=== PATIENT | male | born 1980 | race Caucasian/White ===

== ENCOUNTER 2016-07-19 13:27 | Inpatient (IN) ==
--- NOTE | 2016-07-19 14:44 | Emergency Department Note ---
START Narrative - START START: I examined this patient and my medical decision-making was reviewed with the TELEPHONE STATION INSTALLER/PA/Advanced Practice Nurse/Resident Physician. I agree with the documented findings, disposition and treatment plan as described except to the extent set forth below. The patient's does have some jaundice in the eyes which he said is new and does have elevated liver enzymes and this will be further discussed with GI to discuss further evaluation either has a inpatient or as a outpatient patient is relatively asymptomatic. Very minimal right upper quadrant pain. [id number]
--- NOTE | 2016-07-19 14:47 | Emergency Department Note ---
Disposition Clinical Impression: Jaundice, Elevated liver enzymes Hepatitis C Qualifiers: Viral hepatitis chronicity: chronic Hepatic coma status: without hepatic coma Qualified Code(s): B18.2 - Chronic viral hepatitis C Disposition: Admitted As Inpatient Condition: Fair Referrals: Farhana Garcia EMPLOYMENT LEGAL ASSISTANT [Primary Care Provider] - Time of Disposition: 18:04 General Adult HPI - General Chief complaint: ED Recheck/Abnormal Lab/Rx Stated complaint: Abnormal Labs Time Seen by Provider: 07/19/16 13:37 Source: patient, EMS Mode of arrival: ambulatory Limitations: no limitations Nursing Notes Reviewed: Yes Vital Signs Reviewed: Yes - History of Present Illness HPI Narrative: Mr. Klein is a 36 year old male that presents for abnormal lab values. Preliminary lab work before starting Vivitrol showed increased AST at 3590, ALT 3541, and bilirubin 4.9. He noted 2 days of constant reflux/GERD without treatment and some RUQ achy discomfort. He also notes "yellowing" of his eyes today. He admits to history of hepatitis B and C, lab work sent with patient suggest hepatitis C positive. He notes a similar episode approx 5 years ago when his liver enzyme was "2500" and he required a 2 day hospital stay. He notes decreased urine output, but denies nausea, vomiting, fever, diarrhea, or constipation. History of heavy alcohol use for approx 20 years before quitting 5 years ago. Also notes extensive history of IVDU, most recently heroin. Pt Subjective Complaint: elevated ALT/AST Pain Scale: 0 - Related Data Home Medications Medication Instructions Recorded Confirmed No Known Home Drugs 07/19/16 07/19/16 Allergies Allergy/AdvReac Type Severity Reaction Status Date / Time No Known Allergies Allergy Verified 07/19/16 13:28 All systems ED: reviewed and negative except as stated. Constitutional: Denies: fever, chills Cardiovascular: Denies: chest pain Respiratory: Denies: dyspnea Gastrointestinal: Denies: abdominal pain, nausea, vomiting, diarrhea, constipation, hematemesis, melena, hematochezia Genitourinary: Denies: dysuria, frequency Musculoskeletal: Denies: back pain Past Medical History - Past Medical History Attestation: Yes The following information was validated with the patient. Source: patient Medical history: Reports: hepatitis Psychiatric history: Reports: no psych history - Social History Smoking Status: Current every day smoker Packs per day: 1 Smokeless Tobacco Status: No Alcohol use: Reports: none Drug use: Reports: IVDU Physical Exam - General Limitations: no limitations General appearance: alert, in no apparent distress - Head Head exam: atraumatic, normocephalic - Eye Eye exam: Present: normal appearance, PERRL, EOMI, scleral icterus - ENT ENT exam: normal exam, normal oropharynx - Neck Neck exam: Present: normal inspection, full ROM, trachea midline - Chest Chest inspection: Present: normal inspection, symmetric chest wall rise - Respiratory Respiratory exam: Present: normal lung sounds bilaterally. Absent: respiratory distress, wheezes - Cardiovascular Cardiovascular exam: Present: regular rate, normal rhythm, +S1, +S2 - Abdominal Exam Abdominal exam: Present: soft, tenderness, normal bowel sounds, other (unable to palpate liver edge.). Absent: distention, guarding, rebound, rigidity, Burdick's sign, ascites, pulsatile mass Abdominal tenderness: Present: RUQ - Extremities Exam Extremities exam: Present: normal inspection, full ROM. Absent: pedal edema - Neurological Exam Neurological exam: Present: alert, oriented X3 - Psychiatric Psychiatric exam: Present: normal affect, normal mood - Skin Skin exam: Present: warm, dry, intact, other (jaundice noted on chest) Course - Reevaluation(s) Reevaluation #1: Patient re-evaluated, ambulating in the halls, no acute distress. Eating pizza without complaint. Time: 18:30 - Consultations Consultation #1: Spoke to Dr. Norton with GI that recommended admission to hospitalist. Spoke to Dr Salvador, admitting physician, that request RUQ US and repeat labs prior to admission. Time: 17:53 Consultation #2: Spoke to ANEESH Lamas with hospitalist with updated lab and US results. Will proceed with admission. Time: 18:01 Vital Signs Temperature 97.4 F L 07/19/16 13:29 Pulse Rate 78 07/19/16 13:29 Respiratory Rate 16 07/19/16 13:29 Blood Pressure 127/90 07/19/16 13:29 O2 Sat by Pulse Oximetry 100 07/19/16 13:29 Temperature 97.8 F 07/19/16 19:12 Pulse Rate 81 07/19/16 19:12 Respiratory Rate 16 07/19/16 19:12 Blood Pressure 127/82 07/19/16 19:12 O2 Sat by Pulse Oximetry 99 07/19/16 19:12 Oxygen Delivery Oxygen Delivery Room Air Medical Decision Making - MDM Narrative Medical decision making narrative: I reviewed lab work that was completed yesterday showing elevated AST, ALT, and bilirubin; in addition positive hepatitis C. With patient's new onset jaundice and elevated liver enzymes, concern for acute hepatitis and need for GI consult. Patient does not appear to have an acute abdomen based on physical exam. US of RUQ showed no acute findings. Patient tolerating PO intake well without complaint. Repeat lab work showing increased liver enzymes, though not as significant as yesterday's report; also noted to have increased lipase. - Lab Data Lab results reviewed: Yes I reviewed the patient's lab results. Result diagrams: 07/19/16 16:30 07/19/16 16:30 Lab Results 07/19/16 07/19/16 07/19/16 Range/Units 16:30 16:30 16:30 WBC 8.1 (4.3-11.1) K/mcL RBC 5.12 (4.19-5.50) M/mcL Hgb 14.5 (12.9-16.9) g/dL Hct 43.6 (37.5-50.1) % MCV 85.2 (83.0-100.0) fL MCH 28.3 (28.0-33.3) pg MCHC 33.3 (31.6-35.5) g/dL RDW 14.0 (11.5-14.5) % Plt Count 267 (140-400) K/mcL MPV 9.7 (9.4-12.4) fL Immature Gran % 0.1 (0-4) % Seg Neutrophils % 41.3 % Lymphocytes % 49.6 % Monocytes % 7.1 % Eosinophils % 1.5 % Basophils % 0.4 % Neutrophils # 3.4 (1.6-8.9) K/mcL Lymphocytes # 4.0 (0.6-4.6) K/mcL Monocytes # 0.6 (0.0-1.3) K/mcL Eosinophils # 0.1 (0.0-0.6) K/mcL Basophils # 0.0 (0.0-0.2) K/mcL Reactive Lymphocytes Present A (Not Present) PT 14.6 H (9.4-12.1) Seconds INR 1.3 Sodium 137 (136-145) mEq/L Potassium 3.4 L (3.5-4.5) mEq/L Chloride 100 (98-109) mEq/L Carbon Dioxide 23 (19-29) mEq/L BUN 11 (8-26) mg/dL Creatinine 0.86 (0.72-1.25) mg/dL Est GFR ( Amer) > 60 (> 60) Est GFR (Non-Af Amer) > 60 (> 60) BUN/Creatinine Ratio 13 (6-26) Glucose 105 H (70-99) mg/dL Calculated Osmolality 284 (280-300) Calcium 9.5 (8.6-10.8) mg/dL Total Bilirubin 4.7 H (0.2-1.2) mg/dL Direct Bilirubin 3.5 H (0.0-0.5) mg/dL Indirect Bilirubin 1.2 (0.0-1.2) mg/dL AST 1675 H (5-34) Units/L ALT 2874 H (0-55) Units/L Alkaline Phosphatase 168 H (38-126) Units/L Serum Total Protein 7.8 (6.0-8.3) g/dL Albumin 4.0 (3.5-5.0) g/dL Globulin 3.8 H (2.4-3.5) g/dL Albumin/Globulin Ratio 1.1 (1.1-2.2) Lipase 103 H (8-78) Units/L - Radiology Data Radiology results reviewed: Yes I reviewed the patient's radiology results. Abdomen Ultrasound 07/19/16 15:43 IMPRESSION: 1. Contracted gallbladder with no definite acute finding. 2. Obscured pancreas secondary to overlying bowel gas. D/ / Jamir Maza MD / Jamir Maza MD Interpreting Provider: Jamir Maza MD
[2016-07-19 16:48] LABS: INR 1.3; Prothrombin Time 14.6 Seconds (9.4-12.1)
[2016-07-19 16:58] LABS: Alanine Aminotransferase 2874 Units/L (0-55); Albumin/Globulin Ratio 1.1 (1.1-2.2); Alkaline Phosphatase 168 Units/L (38-126); Aspartate Amino Transferase 1675 Units/L (5-34); BUN/Creatinine Ratio 13 (6-26); Bilirubin,Direct 3.5 mg/dL (0.0-0.5); Bilirubin,Indirect 1.2 mg/dL (0.0-1.2); Bilirubin,Total 4.7 mg/dL (0.2-1.2); Blood Urea Nitrogen 11 mg/dL (8-26); Calcium 9.5 mg/dL (8.6-10.8); Carbon Dioxide 23 mEq/L (19-29); Chloride 100 mEq/L (98-109); Globulin 3.8 g/dL (2.4-3.5); Glucose 105 mg/dL (70-99); Lipase 103 Units/L (8-78); Osmolality,Calculated 284 (280-300); Potassium 3.4 mEq/L (3.5-4.5); Sodium 137 mEq/L (136-145); Total Protein 7.8 g/dL (6.0-8.3); eGFR For African Americans > 60 (> 60); eGFR For Non-African Americans > 60 (> 60)
[2016-07-19 17:06] LABS: Basophils % 0.4 %; Eosinophils # 0.1 K/mcL (0.0-0.6); Eosinophils % 1.5 %; Hematocrit 43.6 % (37.5-50.1); Hemoglobin 14.5 g/dL (12.9-16.9); Immature Granulocytes % 0.1 % (0-4); Lymphocytes % 49.6 %; Mean Corpuscular HGB Conc 33.3 g/dL (31.6-35.5); Mean Corpuscular Hemoglobin 28.3 pg (28.0-33.3); Mean Corpuscular Volume 85.2 fL (83.0-100.0); Mean Platelet Volume 9.7 fL (9.4-12.4); Monocytes # 0.6 K/mcL (0.0-1.3); Monocytes % 7.1 %; Neutrophils # 3.4 K/mcL (1.6-8.9); Platelet Count 267 K/mcL (140-400); Red Blood Count 5.12 M/mcL (4.19-5.50); Segmented Neutrophils % 41.3 %
[2016-07-19 17:44] LABS: Reactive Lymphocytes Present (Not Present)
--- NOTE | 2016-07-19 19:50 | Internal Med History&Physical ---
Date of Encounter: 07/19/16 Time of Encounter: 19:42 Assessment and Plan (1) Pancreatitis Current visit: Yes Status: Acute mild and minimal symptoms Qualifiers: Chronicity: acute Pancreatitis type: drug induced Acute pancreatitis complication: unspecified Qualified Code(s): K85.30 - Drug induced acute pancreatitis without necrosis or infection (2) Hepatitis C Current visit: Yes Status: Acute says treated for hepatitis B 3 years ago and then diagnosed with hepatitis c last year most likely etiology for roberto inr is normal Qualifiers: Viral hepatitis chronicity: chronic Hepatic coma status: without hepatic coma Qualified Code(s): B18.2 - Chronic viral hepatitis C (3) Jaundice Current visit: Yes Status: Acute acute hepatitis with jaundice ultrasound unremarkable DR Norton in consultation (4) Elevated liver enzymes Current visit: Yes Status: Acute (5) Drug abuse and dependence Current visit: Yes Status: Acute fpc drug dependence and about to be started on Vivitrol (6) Hypokalemia Current visit: Yes Status: Acute will supplement and recheck in am check mag as well Internal Medicine - H&P: HPI Chief complaint: jaundice Admitted From: Emergency Dept Plans for Post Hospital Care: Home History of present illness: Mr. Klein is a 36 year old male Patient with history of hepatitis B treated about 3 years ago. last year diagnosed with hepatitis C also, but being treated yet He has history of multiple drug abuse including IV drugs . meth , heroin and cocaine and heavy alcohol use in past patient is a skilled nursing was noted to be jaundiced, has some mild symptoms of abdominal pain and fatique and feeling tired He was to be started on Vivitrol and some labs drawn prior to starting drug substitute labs showed elevated liver enzymes . then he was transferred here for treatment . labs here shows , AST was 1675, AST 2874 bilirubin 4.[address] Norton Gi has been consulted . ultrasound of the abdomen was negative no gallstone CBD not dilated . Patient says his last drug use has been about a month no recent alcohol use. denies nausea or vomiting his lipase was also elevated to 103 but is able to tolerate food with no symptoms Past Med Surg Social Fam HX - Past Medical History Medical history: hepatitis, liver disease Psychiatric history: no psych history - Social History Smoking Status: Current every day smoker Packs per day: 1 Smokeless Tobacco Status: No Alcohol use: none Drug use: IVDU Internal Medicine - H&P: Meds No Known Home Drugs 07/19/16 [History] Allergies No Known Allergies Allergy (Verified 07/19/16 13:28) All Systems PM: A 10-system review of systems was performed and is negative for pertinent findings except as documented above in the HPI. - Constitutional Constitutional: fatigue, lethargy, malaise - EENT Additional comments: jaundice Nose, mouth and throat: other - Cardiovascular Cardiovascular ROS IM: no chest pain, no diaphoresis, no dyspnea, no lightheadedness, no palpitations, no syncope - Respiratory Respiratory: no cough, no dyspnea, no wheezing, no excessive phlegm production - Gastrointestinal Gastrointestinal: abdominal pain, heartburn - Musculoskeletal Musculoskeletal ROS IM: no numbness, no tingling - Integumentary Integumentary IM: jaundice - Neurological Neurological ROS: no confusion, no convulsions, no focal weakness, no numbness, no tingling, no tremor(s) - Hematologic/Lymphatic Hematologic/Lymphatic: no easy bruising - Constitutional Vitals: Temp Pulse Resp BP Pulse Ox 97.8 F 81 16 127/82 99 07/19/16 19:12 07/19/16 19:12 07/19/16 19:12 07/19/16 19:12 07/19/16 19:12 General appearance: Present: A&O X 3 - Eye Eye exam: Present: scleral icterus - Neck Neck exam general surgery: Present: supple, trachea midline. Absent: lymphadenopathy - Respiratory Respiratory exam: Present: CTAB. Absent: accessory muscle use, rales, rhonchi, wheezes - Cardiovascular Cardiovascular exam: Present: RRR, +S1, +S2. Absent: diastolic murmur, gallop, rubs, systolic murmur - GI/Abdominal GI/Abdominal exam: Present: normal bowel sounds, soft, tenderness, no peritoneal signs. Absent: distended - Extremities Exam Extremities exam: Present: warm, radial pulses palpable and symetrical. Absent : calf tenderness, cyanotic, pedal edema Internal Med - H&P Results - Labs CBC & Chem 7: 07/19/16 16:30 07/19/16 16:30
[2016-07-19] MEDS ORDERED: Naloxone 0.4 MG/ML INJ IVP PRN ×2 (19:58→19:59)
[2016-07-19] MEDS ORDERED: Ondansetron 4 MG/2 ML VIAL IVP PRN (19:59)
[2016-07-19] MEDS ORDERED: 0.9 % Sodium Chloride 1,000 ML IVC SCH (20:00)
[2016-07-19] MEDS: *HR* Morphine 2 MG/ML SYRINGE IVP PRN (21:43)
[2016-07-20] MEDS: *HR* Morphine 2 MG/ML SYRINGE IVP PRN ×4 (01:46→14:14)
[2016-07-20 04:48] LABS: INR 1.3; Prothrombin Time 13.7 Seconds (9.4-12.1)
[2016-07-20 05:00] LABS: Alanine Aminotransferase 1968 Units/L (0-55); Albumin 3.2 g/dL (3.5-5.0); Alkaline Phosphatase 138 Units/L (38-126); Aspartate Amino Transferase 821 Units/L (5-34); BUN/Creatinine Ratio 16 (6-26); Bilirubin,Total 3.1 mg/dL (0.2-1.2); Blood Urea Nitrogen 12 mg/dL (8-26); Calcium 8.7 mg/dL (8.6-10.8); Carbon Dioxide 21 mEq/L (19-29); Chloride 106 mEq/L (98-109); Chol/HDL Ratio 20.2 (0-4.9); Cholesterol 101 mg/dL (< 200); Globulin 3.2 g/dL (2.4-3.5); Glucose 122 mg/dL (70-99); HDL Cholesterol 5 mg/dL (40-59); LDL Cholesterol,Calculated 58 mg/dL (0-99); Magnesium 1.9 mg/dL (1.6-2.6); Osmolality,Calculated 289 (280-300); Potassium 3.8 mEq/L (3.5-4.5); Sodium 139 mEq/L (136-145); Total Protein 6.4 g/dL (6.0-8.3); Triglycerides 192 mg/dL (< 150); eGFR For African Americans > 60 (> 60); eGFR For Non-African Americans > 60 (> 60)
[2016-07-20 05:27] LABS: Hepatitis A Antibody IgM Nonreactive (Nonreactive); Hepatitis B Core IgM Nonreactive (Nonreactive); Hepatitis B Surface Antigen Nonreactive (Nonreactive)
[2016-07-20 06:41] LABS: Hepatitis C Virus Antibody Reactive (Nonreactive)
--- NOTE | 2016-07-20 12:08 | Gastroenterology Consult Note ---
<Luke Brennan Stacie - Last Filed: 07/20/16 12:05> Date of Encounter: 07/20/16 Time of Encounter: 10:40 - Assessment and plan (1) Hepatitis C Current Visit: Yes Status: Acute Assessment and plan: Hep C screen positive. Complete Hep C quant and genotype. Likely an acute Hep C. Continue ot monitor hepatic panel daily. Pt states he has been drug free for 2+ years. Check tox screen. RUQ US with no obstruction. Qualifiers: Viral hepatitis chronicity: chronic Hepatic coma status: without hepatic coma Qualified Code(s): B18.2 - Chronic viral hepatitis C (2) Elevated liver enzymes Current Visit: Yes Status: Acute Assessment and plan: on admission TB 4.3, AST 1675, ALT 2874. This AM TB 3.1, AST 821, ALTT 1968. Hep C screening positive. Likely acute hepatitis. Follow up in GI office in 2 weeks. Check hepatic panel prior to office visit. (3) Jaundice Current Visit: Yes Status: Acute (4) Pancreatitis Current Visit: Yes Status: Acute Assessment and plan: Lipase 103, mildly elevated. Continue IV fluids, anti emetics, and pain control. Qualifiers: Chronicity: acute Pancreatitis type: drug induced Acute pancreatitis complication: unspecified Qualified Code(s): K85.30 - Drug induced acute pancreatitis without necrosis or infection - Time Spent With Patient Total time spent is greater than 50% in coordination of care (as documented) at patient's floor/unit and/or counseling patient: GI History of Present Illness - Data of Consult Patient: new to practice Consult date: 07/20/16 Requesting Physician: Dae Chávez MD - Consult Narrative Reason for consult: Hepatitis, Jaundice History of present illness: Mr. Klein is a 36 year old male with PMHx of hepatitis B treated 3 years ago, he was diagnosed with Hep C last year but has not been treated. He has a history of drug abuse including IV drugs, meth, heroin, cocaine, and heavy alcohol abuse (quit 5 years ago after 20 years of ETOH abuse). He presented with jaundice, mild abdominal pain, fatigue. He denies nausea, vomiting, fever, diarrhea, or constipation. He was to be started on Vivitrol, and preliminary lab work showed increased AST at 3590, ALT 3541, and bilirubin 4.9. RUQ US with contracted gallbladder with no definite acute finding, obscured pancreas secondary to overlying bowel gas. Pt denies use of Tylenol. Procedures: None NSAIDs: Aleve Anticoagulation: None Past Med Surg Social Fam HX - Past Medical History Medical history: hepatitis, liver disease Psychiatric history: no psych history - Social History Smoking Status: Current every day smoker Packs per day: 1 Smokeless Tobacco Status: No Alcohol use: none Drug use: IVDU - Family History Father Hx Family Endocrine Disorder: Yes - Gastrointestinal Gastrointestinal: Present: as per HPI - Constitutional Constitutional: as per HPI - EENT Eyes: as per HPI Ears: Present: as per HPI Nose, mouth and throat: Present: as per HPI - Cardiovascular Cardiovascular ROS: Present: as per HPI - Respiratory Respiratory IM: Present: as per HPI - Genitourinary Genitourinary: Absent: change in color, Urinary frequency - Neurological ROS Neurological GI: Present: as per HPI - Hematologic/Lymphatic Hematologic/Lymphatic pediatric: Present: as per HPI - Musculoskeletal Musculoskeletal ROS GI: Present: as per HPI - Integumentary Integumentary GI: Present: as per HPI - Psychiatric ROS Psychiatric GI: Present: as per HPI - Endocrine Endocrine IM: Present: as per HPI - Constitutional Vitals: Temp Pulse Resp BP Pulse Ox 98.2 F 74 16 120/76 100 07/20/16 10:39 07/20/16 10:39 07/20/16 10:39 07/20/16 10:39 07/20/16 10:39 General appearance: Present: cooperative, A&O X 3, no acute distress, answers questions appropriately - Head Head exam: Present: atraumatic, normocephalic - Eye Eye exam: Present: normal appearance, sclera anicteric - ENT ENT exam: Present: mucous membranes moist - Neck Neck exam general surgery: Present: normal inspection, trachea midline - Respiratory Respiratory exam: Present: CTAB. Absent: rales, rhonchi - Cardiovascular Cardiovascular exam: Present: RRR, +S1, +S2 - GI/Abdominal GI/Abdominal exam: Present: soft, no peritoneal signs. Absent: distended, firm , guarding - Rectal Rectal exam: Present: deferred - Extremities Exam Extremities exam: Present: warm - Neurological Exam Neurological exam: Present: no focal deficits - Psychiatric Psychiatric exam: Present: normal affect, normal mood - Skin Skin exam: Present: dry, intact, normal color, warm Results - Labs CBC & Chem 7: 07/19/16 16:30 07/20/16 04:08 Labs: Last Result Calcium 8.7 mg/dL (8.6-10.8) 07/20/16 04:08 Triglycerides 192 mg/dL (< 150) H 07/20/16 04:08 Entire Visit Hgb 14.5 g/dL (12.9-16.9) 07/19/16 16:30 Hct 43.6 % (37.5-50.1) 07/19/16 16:30 PT 13.7 Seconds (9.4-12.1) H 07/20/16 04:08 Total Bilirubin 3.1 mg/dL (0.2-1.2) H 07/20/16 04:08 AST 821 Units/L (5-34) H 07/20/16 04:08 ALT 1968 Units/L (0-55) H 07/20/16 04:08 Lipase 103 Units/L (8-78) H 07/19/16 16:30 - ABG ABG results: PT/INR, D-dimer PT 13.7 Seconds (9.4-12.1) H 07/20/16 04:08 Consult Discharge Plan - Plan Referrals: Farhana Garcia, CROCHETER HAND [Primary Care Provider] - <Johanny Norton - Last Filed: 07/20/16 14:43> Date of Encounter: 07/20/16 - Time Spent With Patient Total time spent is greater than 50% in coordination of care (as documented) at patient's floor/unit and/or counseling patient: GI History of Present Illness - Data of Consult Requesting Physician: Dae Chávez MD - Consult Narrative History of present illness: Mr. Klein is a 36 year old male - Constitutional Vitals: Temp Pulse Resp BP Pulse Ox 98.2 F 74 16 120/76 100 07/20/16 10:39 07/20/16 10:39 07/20/16 10:39 07/20/16 10:39 07/20/16 10:39 Results - Labs CBC & Chem 7: 07/19/16 16:30 07/20/16 04:08 Labs: Last Result Calcium 8.7 mg/dL (8.6-10.8) 07/20/16 04:08 Ferritin 398 ng/ml (22-275) H 07/20/16 12:43 Triglycerides 192 mg/dL (< 150) H 07/20/16 04:08 Urine Opiates Screen Positive ng/mL (Tymgqd=580) H 07/20/16 13:44 Entire Visit Hgb 14.5 g/dL (12.9-16.9) 07/19/16 16:30 Hct 43.6 % (37.5-50.1) 07/19/16 16:30 PT 13.7 Seconds (9.4-12.1) H 07/20/16 04:08 Ferritin 398 ng/ml (22-275) H 07/20/16 12:43 Total Bilirubin 3.1 mg/dL (0.2-1.2) H 07/20/16 04:08 AST 821 Units/L (5-34) H 07/20/16 04:08 ALT 1968 Units/L (0-55) H 07/20/16 04:08 Lipase 103 Units/L (8-78) H 07/19/16 16:30 - ABG ABG results: PT/INR, D-dimer PT 13.7 Seconds (9.4-12.1) H 07/20/16 04:08 - Attending Attestation I examined this patient and my medical decision-making was reviewed with the GINSENG FARMER/PA/Advanced Practice Nurse/Resident Physician. I agree with the documented findings, disposition and treatment plan as described except to the extent set forth below.
[2016-07-20 13:58] LABS: Amphetamine Screen,Urine Negative ng/mL (Cutoff=1000); Barbiturate Screen,Urine Negative ng/mL (Cutoff=200); Benzodiazepines Screen,Urine Negative ng/mL (Cutoff=200); Cannabinoid Screen,Urine Negative ng/mL (Cutoff = 50); Cocaine Screen,Urine Negative ng/mL (Cutoff= 300); Opiate Screen,Urine Positive ng/mL (Cutoff=300); Phencyclidine Screen,Urine Negative ng/mL (Cutoff=25)
[2016-07-20] MEDS ORDERED: *HR* OxyCODONE Immed Rel 5 MG TABLET PO PRN (14:37)
[2016-07-20] MEDS ORDERED: Mag Hydrox/Al Hydrox/Simeth 30 ML UDC PO PRN (14:41)
[2016-07-20] MEDS: *HR* OxyCODONE Immed Rel 5 MG TABLET PO PRN (16:04)
[2016-07-20] MEDS ORDERED: Temazepam 15 MG CAPSULE PO PRN (16:07)
--- NOTE | 2016-07-20 17:14 | Internal Med Progress Note ---
Date of Encounter: 07/20/16 Time of Encounter: 14:00 - Assessment and plan (1) Anxiety Current Visit: Yes Status: Acute Assessment and plan: Start low-dose Ativan 0.5 mg oral 3 times a day when necessary. (2) Insomnia Current Visit: Yes Status: Acute Assessment and plan: We will treat with Restoril when necessary. Qualifiers: Insomnia type: unspecified Qualified Code(s): G47.00 - Insomnia, unspecified (3) Hepatitis C Current Visit: Yes Status: Acute Assessment and plan: Acute hepatitis C causing LFT elevation and abdominal pain associated with generalized weakness. Acute hepatitis C: We will consult gastroenterology. Obtain viral titers. Supportive care. For pain he has been receiving IV morphine, will start oral oxycodone and discontinue the IV since he has a reliable oral intake. We will treated nausea. Qualifiers: Viral hepatitis chronicity: chronic Hepatic coma status: without hepatic coma Qualified Code(s): B18.2 - Chronic viral hepatitis C (4) Elevated liver enzymes Current Visit: Yes Status: Acute (5) Drug abuse and dependence Current Visit: Yes Status: Acute Assessment and plan: Stop IV opiates since he has a good reliable oral intake. High risk for repeat addiction. The patient states that he has not used IV drug for a long time. He is very evasive in his answers and I suspect he may not be completely honest. At this point I will check a urine toxicology screen which is expected to be positive due to treatment with IV morphine. - Subjective Interval history: Patient presents to hospital with abdominal pain and was found to have elevated LFTs. Currently he reports 6/10 sharp right upper quadrant pain, improved with IV morphine. He denies associated nausea. Has been having severe right upper quadrant pain for the last 3 days associated with 5 days of generalized weakness and malaise, body aches which preceded the pain by about 2 days. - Constitutional Vitals: Temp Pulse Resp BP Pulse Ox 98.3 F 71 16 110/74 99 07/20/16 14:43 07/20/16 14:43 07/20/16 14:43 07/20/16 14:43 07/20/16 14:43 General appearance: Present: A&O X 3 - Respiratory Respiratory exam: Present: CTAB. Absent: accessory muscle use, rales, rhonchi, wheezes - Cardiovascular Cardiovascular exam: Present: RRR, +S1, +S2. Absent: diastolic murmur, gallop, rubs, systolic murmur - GI/Abdominal GI/Abdominal exam: Present: normal bowel sounds, soft, tenderness (Tender to palpation in the right upper quadrant), no peritoneal signs. Absent: distended - Extremities Exam Extremities exam: Present: warm, radial pulses palpable and symetrical. Absent : calf tenderness, cyanotic, pedal edema - Neurological Exam Neurological exam: Present: CN II-XII intact, oriented X3, no focal deficits. Absent: pronater drift, facial droop, speech deficit Internal Medicine: Result - Labs CBC & Chem 7: 07/19/16 16:30 07/20/16 04:08 Labs: BMP 07/20/16 04:08 Sodium 139 Potassium 3.8 Chloride 106 Carbon Dioxide 21 BUN 12 Creatinine 0.74 Glucose 122 H Calcium 8.7 Liver Function 07/20/16 Range/Units 04:08 Total Bilirubin 3.1 H (0.2-1.2) mg/dL AST 821 H (5-34) Units/L ALT 1968 H (0-55) Units/L Alkaline Phosphatase 138 H (38-126) Units/L Albumin 3.2 L (3.5-5.0) g/dL - ABG Interpretation ABG results: PT/INR, D-dimer PT 13.7 Seconds (9.4-12.1) H 07/20/16 04:08 Consult Discharge Plan - Plan Referrals: Farhana Garcia, AD SETTER [Primary Care Provider] -
[2016-07-20] MEDS ORDERED: *HR* LORazepam 0.5 MG TABLET PO PRN (17:33)
[2016-07-21] MEDS: *HR* OxyCODONE Immed Rel 5 MG TABLET PO PRN ×2 (00:23→08:29)
[2016-07-21 04:04] LABS: Basophils % 0.3 %; Eosinophils # 0.2 K/mcL (0.0-0.6); Eosinophils % 3.4 %; Lymphocytes # 3.6 K/mcL (0.6-4.6); Lymphocytes % 58.2 %; Mean Corpuscular HGB Conc 32.9 g/dL (31.6-35.5); Mean Corpuscular Hemoglobin 28.8 pg (28.0-33.3); Mean Corpuscular Volume 87.7 fL (83.0-100.0); Mean Platelet Volume 9.9 fL (9.4-12.4); Monocytes # 0.6 K/mcL (0.0-1.3); Monocytes % 8.8 %; Neutrophils # 1.8 K/mcL (1.6-8.9); Platelet Count 188 K/mcL (140-400); Red Blood Count 3.99 M/mcL (4.19-5.50); Red Cell Distribution Width 14.5 % (11.5-14.5); Segmented Neutrophils % 29.3 %
[2016-07-21 04:15] LABS: Alanine Aminotransferase 1311 Units/L (0-55); Albumin 3.1 g/dL (3.5-5.0); Alkaline Phosphatase 129 Units/L (38-126); Aspartate Amino Transferase 356 Units/L (5-34); BUN/Creatinine Ratio 12 (6-26); Bilirubin,Direct 1.2 mg/dL (0.0-0.5); Bilirubin,Indirect 0.7 mg/dL (0.0-1.2); Bilirubin,Total 1.9 mg/dL (0.2-1.2); Blood Urea Nitrogen 10 mg/dL (8-26); Calcium 8.9 mg/dL (8.6-10.8); Carbon Dioxide 25 mEq/L (19-29); Chloride 106 mEq/L (98-109); Globulin 3.1 g/dL (2.4-3.5); Glucose 105 mg/dL (70-99); Osmolality,Calculated 289 (280-300); Potassium 4.1 mEq/L (3.5-4.5); Sodium 140 mEq/L (136-145); Total Protein 6.2 g/dL (6.0-8.3); eGFR For African Americans > 60 (> 60); eGFR For Non-African Americans > 60 (> 60)
[2016-07-21 04:21] LABS: Hemoglobin 11.5 g/dL (12.9-16.9)
--- NOTE | 2016-07-21 13:57 | Discharge Summary ---
Date of Encounter: 07/21/16 Time of Encounter: 13:54 - Discharge Diagnosis (1) Anxiety Priority: Secondary Status: Acute (2) Insomnia Priority: Secondary Status: Acute Qualifiers: Insomnia type: unspecified Qualified Code(s): G47.00 - Insomnia, unspecified (3) Hepatitis C Priority: Primary Status: Acute Qualifiers: Viral hepatitis chronicity: chronic Hepatic coma status: without hepatic coma Qualified Code(s): B18.2 - Chronic viral hepatitis C (4) Elevated liver enzymes Priority: Secondary Status: Acute (5) Drug abuse and dependence Priority: Secondary Status: Acute (6) Tobacco abuse Priority: Secondary Status: Acute - Discharge Medications Prescriptions: OxyCODONE Immed Rel [Roxicodone 5 MG] 5 mg PO Q6HR PRN #20 tablet PRN Reason: Pain Mag Hydrox/Al Hydrox/Simeth [Maalox] 30 ml PO Q4H PRN #30 udc PRN Reason: Heartburn Pantoprazole Sodium [Protonix] 40 mg PO DAILY #30 tablet. Home Medications: Mag Hydrox/Al Hydrox/Simeth [Maalox] 30 ml PO Q4H PRN #30 udc 07/21/16 [Rx] OxyCODONE Immed Rel [Roxicodone 5 MG] 5 mg PO Q6HR PRN #20 tablet 07/21/16 [Rx] Pantoprazole Sodium [Protonix] 40 mg PO DAILY #30 tablet. 07/21/16 [Rx] Allergies/Adverse Reactions: Allergies No Known Allergies Allergy (Verified 07/19/16 13:28) Date of admission: 07/20/16 03:13 Primary care physician: Farhana Garcia CNP - Patient Status Disposition: Home, Self-Care Condition: Fair Functional capacity at discharge: independent ambulation Overall status at discharge: patient is progressing back to baseline - Discharge Instructions Follow Up With: Farhana Garcia CNP [Primary Care Provider] - Johanny Norton MD [Partnered Physician] - (Please follow up within 1 week of discharge to be evaluated for hepatitis C. Call the office for appointment.) Additional Instructions: Avoid all alcohol consumption. Refrain from smoking cigarettes. Follow up with institution librarian within 1 week of discharge. Avoids strenuous activity or high impact sports. - Diet and Activity Activity: increase activity as tolerated Diet: advance to your usual diet (Avoid spicy and greasy food), regular diet Hospital course: Mr. Klein is a 36 year old male previously diagnosed with hepatitis B, with no other medical history who was sent from long-term for evaluation of jaundice. On presentation he states reported severe abdominal pain both epigastric and right upper quadrant. He also reports prior history of polysubstance abuse including heroin and methamphetamine cocaine and heavy alcohol use. Denies any recent drug use. His initial workup revealed elevated bilirubin and elevated transaminases. His liver ultrasound found no evidence of acute pathology. Gallbladder within normal limits. He was diagnosed with acute hepatitis C and admitted to the medical service. He was started nothing by mouth, IV fluids, IV hydromorphone for severe right upper quadrant pain. On day 2 of hospitalization was started on regular diet. This was advanced. He was evaluated by gastroenterology service. His hepatitis C studies including viral load and genotype were sent and are currently pending. He is transaminases are trending down. Total bilirubin is 1.9 today. His abdominal pain is controlled with oxycodone. He is medically stable for discharge home. He was instructed to follow up with gastroenterology within a week. He was advised to stop smoking, avoid alcohol consumption and to not perform any strenuous activities. - Time Spent with Patient Total time spent providing and/or coordinating discharge services: Greater than 30 minutes (I have spent 40 minutes coordinating this discharge) - Constitutional Vitals: Temp Pulse Resp BP Pulse Ox 97.7 F 84 16 117/53 100 07/21/16 10:27 07/21/16 10:27 07/21/16 10:27 07/21/16 10:27 07/21/16 10:27 General appearance: Present: A&O X 3 - Eye Eye exam: Present: scleral icterus - Respiratory Respiratory exam: Present: CTAB. Absent: accessory muscle use, rales, rhonchi, wheezes - Cardiovascular Cardiovascular exam: Present: RRR, +S1, +S2. Absent: diastolic murmur, gallop, rubs, systolic murmur - GI/Abdominal GI/Abdominal exam: Present: normal bowel sounds, soft, no peritoneal signs. Absent: distended, tenderness
[2016-07-22 11:21] LABS: HCV Quant Interpretation DETECTED (Not Detected)
[2016-07-23 08:11] LABS: AFP Tumor Marker Non-Pregnant 4 ng/mL (0-9); ANA IgG by ELISA NONE DETECTED (None Detected); Alpha-1-Antitrypsin 175 mg/dL (90-200); Ceruloplasmin 35 mg/dL (17-54); Myeloperoxidase Ab 3 AU/mL (0-19); Serine Protease-3 Antibody 1 AU/mL (0-19)
[2016-07-23 08:20] LABS: F-Actin (sm muscle) Ab IgG 27 Units (0-19)
[2016-07-23 08:21] LABS: Smooth Muscle Ab Titer IgG <1:20 (<1:20)
[2016-07-24 10:30] VITALS: BP 117/53
[2016-07-25 15:10] LABS: HCV Genotype by Sequencing MIXED
== END 2016-07-21 14:47 | disposition home or self-care (01) ==
LOC: EMEROO 13:27 → 3ANU 13:27
PROVIDERS: ADMIT Internal Medicine; ATTEND Internal Medicine